=== PATIENT | male | born 1960 | race Caucasian/White ===

== ENCOUNTER 2023-12-22 07:07 | Outpatient (RCR) | payer OTHER, SELFPAY ==
[2023-12-14 14:26] LABS: Glucose - Point of Care 106 mg/dl (70-99)
[2023-12-14 15:14] LABS: Glucose - Point of Care 104 mg/dl (70-99)
[2023-12-17 06:38] LABS: Glucose - Point of Care 227 mg/dl (70-99)
[2023-12-17 07:35] LABS: Glucose - Point of Care 212 mg/dl (70-99)
[2023-12-22 07:27] LABS: Glucose - Point of Care 162 mg/dl (70-99)
[2023-12-22 07:34] LABS: Glucose - Point of Care 165 mg/dl (70-99)
== END 2023-12-22 23:59 | disposition home or self-care (01) ==
LOC: CRHB 07:07
PROVIDERS: ATTENDING PHYSICIAN Internal Medicine Critical Care Medicine
DX: I25.10 Atherosclerotic heart disease of native coronary artery without angina pectoris (principal); Z95.5 Presence of coronary angioplasty implant and graft
CPT/HCPCS: 82962; 93798

== ENCOUNTER 2024-01-21 06:36 | Outpatient (RCR) | payer OTHER, SELFPAY ==
[2023-12-24 06:32] LABS: Glucose - Point of Care 152 mg/dl (70-99)
[2023-12-24 07:29] LABS: Glucose - Point of Care 142 mg/dl (70-99)
[2024-01-05 06:40] LABS: Glucose - Point of Care 145 mg/dl (70-99)
[2024-01-05 07:33] LABS: Glucose - Point of Care 155 mg/dl (70-99)
[2024-01-14 06:38] LABS: Glucose - Point of Care 126 mg/dl (70-99)
[2024-01-14 07:32] LABS: Glucose - Point of Care 116 mg/dl (70-99)
== END 2024-01-21 23:59 | disposition home or self-care (01) ==
LOC: CRHB 06:36
PROVIDERS: ATTENDING PHYSICIAN Internal Medicine Critical Care Medicine
DX: I25.10 Atherosclerotic heart disease of native coronary artery without angina pectoris (principal); Z95.5 Presence of coronary angioplasty implant and graft
CPT/HCPCS: 82962; 93797; 93798; G0422

== ENCOUNTER 2024-02-18 06:56 | Outpatient (RCR) | payer OTHER, SELFPAY | END 2024-02-18 23:59 | disposition home or self-care (01) | LOC: CRHB 06:56 | PROVIDERS: ATTENDING PHYSICIAN Internal Medicine Critical Care Medicine | DX: I25.10 Atherosclerotic heart disease of native coronary artery without angina pectoris (principal); Z95.5 Presence of coronary angioplasty implant and graft | CPT/HCPCS: 93798 ==